=== PATIENT | male | born 1960 | race Two or more races ===

== ENCOUNTER 2019-11-06 17:31 | Emergency (ER) | payer MEDICAID, OTHER ==
[~2019-11-06] VITALS: Ht 165.1 cm; Wt 88.0 kg
[2019-11-06 18:07] VITALS: BP 128/79
[2019-11-06] MEDS ORDERED: ACETAMINOPHEN 500 MG TAB PO ONE (18:15)
== END 2019-11-06 19:47 | disposition home or self-care (01) ==
LOC: ER 17:31
DX: J40 Bronchitis, not specified as acute or chronic (principal); J02.9 Acute pharyngitis, unspecified; Z20.828 Contact with and (suspected) exposure to other viral communicable diseases
CPT/HCPCS: 71045; 87070; 87635; 87880

== ENCOUNTER 2022-12-21 07:54 | Emergency (ER) | payer MEDICAID, OTHER ==
[~2022-12-21] VITALS: Ht 165.1 cm; Wt 87.5 kg
[2022-12-21 08:32] VITALS: BP 138/89; PULSE 70; RESP 18; TEMP 97.7; O2SAT 97
[2022-12-21] MEDS ORDERED: KETOROLAC TROMETH 60MG/2ML VIAL IM ONE (08:45)
[2022-12-21] MEDS ORDERED: METH-1182 PO (09:31)
[2022-12-21] MEDS ORDERED: IBUP-1456 PO (09:31)
== END 2022-12-21 09:35 | disposition home or self-care (01) ==
LOC: ER 07:54
DX: S16.1XXA Strain of muscle, fascia and tendon at neck level, initial encounter (principal); S39.012A Strain of muscle, fascia and tendon of lower back, initial encounter; E78.5 Hyperlipidemia, unspecified; V43.52XA Car driver injured in collision with other type car in traffic accident, initial encounter; Y93.89 Activity, other specified; Y92.89 Other specified places as the place of occurrence of the external cause; Y99.8 Other external cause status
CPT/HCPCS: 70450; 72040; 72100; 96372; 99285; J1885; L0120

== ENCOUNTER 2024-06-01 09:48 | Emergency (ER) | payer MEDICAID, OTHER ==
[~2024-06-01] VITALS: Ht 165.1 cm; Wt 90.0 kg
[~2024-06-01 09:48] MED LIST: IBUP-1456 PO; METH-1182 PO
[2024-06-01 10:59] VITALS: BP 121/74; PULSE 72; RESP 18; TEMP 98; O2SAT 100
[2024-06-01] MEDS ORDERED: GABA-1308 PO (12:05)
--- NOTE | 2024-06-01 12:05 | ED.PDOC ---
History of Present Illness(SKN HPI Comments This is a 63 year old male with h/o shingles last week treated. rash is gone but continues with pain. No other symptoms. Chief Complaint: Rash Time Seen by MD: 11:52 Primary Care Provider: ? History of Present Illness: Nurses Notes, Medications, Allergies Allergies: Coded Allergies: NO KNOWN ALLERGIES (Unverified , 11/06/19) Home Meds Active Scripts Methocarbamol (Methocarbamol) 750 Mg Tab, 750 MG PO BID, #20 TAB Prov:ISI STYLES 12/21/22 Ibuprofen (Ibuprofen) 800 Mg Tab, 1 TAB PO TID, #30 TAB Prov:ISI STYLES 12/21/22 Information Source: Patient Mode of Arrival: Ambulatory Past Medical History PAST MEDICAL HISTORY: High Lipids Past Medical History (Other): Shingles Surgical History: Cholecystectomy Family History Family History: Reviewed,noncontributory to illness, Family hx of DM Social History Smoker: Non-Smoker Alcohol: Denies ETOH Use Drugs: Denies Drug Use Lives In: Home Integumetry: reports: rash, others (Nerve pain where healed rash is) All Other Systems: Reviewed and Negative Physical Exam General Appearance: No Apparent Distress, None, Normal HEENT: Normal ENT Inspection, PERRL/EOMI, Pharynx Normal, TMs Normal Neck: Full Range of Motion, Non-Tender, Normal Inspection Respiratory: Lungs Clear, No Respiratory Distress, Normal Breath Sounds Cardiovascular: Regular Rate/Rhythm Breast Exam: Deferred Gastrointestinal: Non Tender, Normal Bowel Sounds, Soft Genitalia: Deferred Pelvic: Deferred Rectal: Deferred Extremities: Normal inspection, Normal range of motion Neurologic: Alert, No Motor Deficits Cerebellar Function: Normal Reflexes: NOT DONE Skin: Rash, Other (healed evidence of shingles left upper anterior chest wall, no open bliters, no redness.) Lymphatic: No Adenopathy Was a procedure done? Was a procedure done?: No Differential Diagnosis (INTG) Differential Diagnosis: Cellulitis Differential Diagnosis: Abrasion X-Ray, Labs, Meds, VS Vital Signs Date Time Temp Pulse Resp B/P (MAP) Pulse Ox O2 Delivery O2 Flow Rate FiO2 06/01/24 10:59 98.0 72 18 121/74 (90) 100 98.0 06/01/24 10:59 72 18 100 Room Air 06/01/24 10:01 98.0 72 18 121/74 (90) 100 X-Ray, Labs, Meds, VS Comment Patient seen and examined by me. Patients rash is dry and healing, here only for nerve pain. I will start him on Gabapentin 100 mg TID. Instructed to follow-up with Primary if still having pain. Time of 1ST Reevaluation: 12:02 Reevaluation 1ST: Unchanged Patient Education/Counseling: Diagnosis, Treatment, Prognosis, Need For Follow Up Family Education/Counseling: Diagnosis, Treatment, Prognosis, Need For Follow Up Departure 1 Departure Time of Disposition: 12:02 Impression: Primary Impression: Nerve pain Additional Impression: History of shingles Disposition: 01 HOME / SELF CARE / HOMELESS Condition: Good Additional Instructions: Start meds today, Might make you sleepy or dizzy when is normal. will go away after a few doses. Okay to ice the area for pain relief. e-Prescriptions Gabapentin (Gabapentin) 100 Mg Cap 1 CAP PO TID for 10 Days, #90 CAP 2 Refills Prov: NORA HARDY 06/01/24 Discharged With: Self, Spouse Critical Care Note Critical Care Time?: No Stability Stability form required: No NORA HARDY Jun 01, 2024 12:05
== END 2024-06-01 12:33 | disposition home or self-care (01) ==
LOC: ER 09:48
DX: M79.2 Neuralgia and neuritis, unspecified (principal); Z86.19 Personal history of other infectious and parasitic diseases; Z90.49 Acquired absence of other specified parts of digestive tract